=== PATIENT | female | born 1980 | race Caucasian/White ===

== ENCOUNTER → 2020-10-23 11:06 | Outpatient (BNVA) | payer OTHER, SELFPAY | PROVIDERS: PCP Internal Medicine; Visit Provider Orthopaedic Surgery | DX: Z76.89 Persons encountering health services in other specified circumstances (principal) ==

== ENCOUNTER 2021-03-13 13:24 | Outpatient (REF) | payer OTHER, SELFPAY ==
--- NOTE | ~2021-03-13 | FL_ITS ---
EXAMINATION: XR ARTHROGRAM HIP, LEFT CLINICAL INFORMATION: Pain COMPARISON: December 27, 2019 and December 21, 2019 TECHNIQUE: Fluoroscopic guided intra-articular steroid injection of the left hip FINDINGS: Informed consent was obtained from the patient prior to the procedure. During this process, the procedure and potential alternatives were explained, along with the intended outcome and benefits. The risks of the procedure, as well as the risk of not doing the procedure, were discussed. The patient was given the opportunity to ask questions regarding the procedure and appeared competent to make medical decisions. A signed consent form which documents this discussion was placed in the medical record. Using sterile technique and fluoroscopic guidance a 22-gauge spinal needle was directed down onto the left femoral neck. Small amount of contrast was administered demonstrating intra-articular positioning of the needle. Following this a combination of 3 mL of bupivacaine and 80 mg of Depo-Medrol was then instilled into the left hip joint space. Patient tolerated procedure without difficulty. FLUOROSCOPY TIME: 0.6 minutes DOSE AREA PRODUCT: 4.232 Gy-cm2 (barbour-centimeter squared) FL/FL arthrogram hip LT IMPRESSION: Successful left hip intra-articular steroid injection.
== END 2021-03-13 13:25 | disposition home or self-care (01) ==
LOC: HO.XRAY 13:24
PROVIDERS: PCP Internal Medicine; Visit Provider Orthopaedic Surgery
DX: M16.12 Unilateral primary osteoarthritis, left hip (principal); M25.552 Pain in left hip
CPT/HCPCS: 27093; 73525

== ENCOUNTER 2021-08-08 08:29 | Outpatient (REF) | payer OTHER, SELFPAY ==
--- NOTE | ~2021-08-08 | XR_ITS ---
EXAMINATION: XR PELVIS CLINICAL INFORMATION: Pain COMPARISON: 12/21/2019 TECHNIQUE: AP view of the pelvis. FINDINGS: There is a total right hip arthroplasty. The femoral head component articulates appropriately with the acetabular component. No periprosthetic lucency or fracture. The left hip is well aligned. Mild degenerative changes with joint space narrowing, small osteophytes, and sclerosis. The pelvic rim is intact. The sacroiliac joints and pubic symphysis are intact. XR/XR pelvis 1-2V IMPRESSION: Total right hip arthroplasty without evidence of failure. Mild degenerative change of the left hip.
== END 2021-08-08 08:30 | disposition home or self-care (01) ==
LOC: HO.HOSX 08:29
PROVIDERS: Visit Provider Orthopaedic Surgery
DX: S73.199D Other sprain of unspecified hip, subsequent encounter (principal); Q65.89 Other specified congenital deformities of hip
CPT/HCPCS: 72170

== ENCOUNTER 2024-01-12 12:12 | Outpatient (AMB) | payer OTHER, SELFPAY ==
--- NOTE | 2024-01-12 12:36 | MHC.OFFVIS ---
Intake Vital Signs 01/12/24 12:47 Height 5 ft 4.5 in Weight 185 lb BMI 31.3 Intake Visit Reasons: new Prob- RIght thumb trigger finger Intake Note: Zenia 43 yr old right hand dominant female presents today for a new problem visit for her right thumb trigger. States her thumb locks causing pain at her volar aspect of her MCP. She has has this locking in her thumb for about 2 months and has worsen. Currently has stiffness. Denies recent injury, numbness or tingling. Allergies doxycycline [DOXYCYCLINE] Allergy (Unknown, Verified 01/12/24 12:47) PANIC ATTACKS erythromycin base [ERYTHROMYCIN BASE] Allergy (Unknown, Verified 01/12/24 12:47) BECAME AGGRESIVE Erythromycin Allergy (Unknown, Uncoded 01/12/24 12:47) Unknown HPI new Prob- RIght thumb trigger finger HPI Details Zenia is a 43 year old right hand dominant woman who presents with complaints of her right thumb locking. She complains of painful locking and catching of her right thumb. She says this has been present for ~2 months now, and has caused stiffness in her thumb. She denies any numbness, tingling, or injury She has a hx of bilateral carpal tunnel release in ~2013, with good relief. She is on Methadone 10mg daily. She works as a mental health therapist. 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 Review of Systems Const All systems reviewed & are unremarkable except as noted in HPI and below Physical Exam Vital Signs: BMI result Body Mass Index 31.3 Const General: cooperative, healthy appearing and no acute distress Orientation/consciousness: patient oriented x3 HEENT Head: Yes normocephalic and Yes atraumatic Eyes EOM: EOMs intact bilaterally Resp Effort & Inspection: normal respiratory effort and able to speak in complete sentences Cardio Jugular venous distension: no JVD Skin General skin exam: turgor normal Rashes: no rashes Neuro General: patient oriented x3 Extrem Other: Evaluation of Right Upper Extremity: The patient is alert, oriented, and in no acute distress Neuro: Median, Ulnar, Radial nerves motor and sensory intact and sensation is normal to the tips of all digits Vascular: Cap refill brisk ROM: She can make a fist and extend all her digits Visible and palpable locking & catching of the thumb Tender over the a1 hilda of the thumb Skin: No lacerations or abrasions. General: No Ecchymosis. No Erythema or evidence of infection. Psych Appearance: grossly normal Affect: normal affect Attitude: cooperative Office Procedures Fracture Care Details: No fracture, injection Fracture Billing Code: Fracture Billing Code Assessment & Plan Assessment & Plan (1) Trigger thumb, right thumb: Code(s): M65.311 - Trigger thumb, right thumb Plan Assessment & Plan: 1. Right trigger thumb I educated her about this condition I discussed operative and non-operative treatment options The patient would like to proceed with an injection Injection #1: The risks and benefits of a steroid injection including but not limited to risk of damage to blood vessels, nerves, tendons, infection, skin bleaching, failure to improve symptoms, increased pain, and possible need for further injections or other intervention were discussed with the patient and the patient wishes to proceed with the steroid injection. Once consent was obtained, I sterilely prepped the area over the A1 hilda of the flexor tendon sheath of the Right thumb. I then injected the flexor tendon sheath with a combination of 1 mL of dexamethasone (4mg/ml), and 1% lidocaine. The patient tolerated the procedure well with no complications. As she had significant locking of the right thumb, which she is found to be quite painful, I also discussed operative treatments for this condition. We are both concerned that if the injection does not work that it would take a couple of months from now to get in to be seen in it may take another month or 2 to get scheduled. So I decided to go ahead and fill out the paperwork for surgery now so that we have it on hand and that she could be scheduled sooner if she finds that the injection did not work in 4 weeks. The risks and benefits of operative treatment were discussed with the patient and the patient wishes to proceed with surgery. These risks include, but are not limited to risk of damage to blood vessels, nerves, tendons, infection, recurrence, incomplete relief of preoperative symptoms, persistent pain, possible need for further surgery and the risks associated with regional blocks and anesthesia. The plan is to take the patient to the operating room not sooner than 8 weeks from today or March 12 for the following procedures: 1. Right thumb A1 hilda release 2. [ ] All of the preoperative paperwork including the consent was filled out today. All the patient's questions were answered. If the patient continues to have locking and catching 4-6 weeks following this injection, they may call to schedule appointment to discuss alternative treatment options, and to be scheduled for surgery not sooner than March 12 Follow-up prn Scribed for Precious Xiao MD by Anthony Campbell, medical superintendent, on 01/12/24 at 1:10 PM, EST. Coding Level of Care Code Est Pt Level 4 (74317) Diagnoses Trigger thumb, right thumb M65.311 CPT Codes Fracture Care - Fracture Billing Code: Fracture Billing Code ([id number])
[2024-01-12 12:47] VITALS: BMI 31.3
== END 2024-01-12 13:41 | disposition home or self-care (01) ==
PROVIDERS: PCP Internal Medicine; Visit Provider Orthopaedic Surgery
DX: M65.311 Trigger thumb, right thumb (principal)
CPT/HCPCS: 20550; 99214

== ENCOUNTER → 2024-01-12 12:12 | Outpatient (BNVA) | payer OTHER, SELFPAY | PROVIDERS: PCP Internal Medicine; Visit Provider Orthopaedic Surgery | DX: M65.311 Trigger thumb, right thumb (principal) | CPT/HCPCS: 20550; J1100 ==

== ENCOUNTER 2024-03-09 13:02 | Outpatient (AMB) | payer OTHER, SELFPAY ==
--- NOTE | 2024-03-09 13:44 | A.OFFVIS_ITS ---
Intake Visit Reasons: OV-Trigger thumb, right thumb-discuss surgery? Intake Note: Zenia is a 43 yr old right hand dominant female who presents today for a follow up for her right thumb trigger finger, last trigger finger 01/12/24. States her last injection didn't give her relief and she would like to discuss surgery. Allergies doxycycline [DOXYCYCLINE] Allergy (Unknown, Verified 03/09/24 13:48) PANIC ATTACKS erythromycin base [ERYTHROMYCIN BASE] Allergy (Unknown, Verified 03/09/24 13:48) BECAME AGGRESIVE Erythromycin Allergy (Unknown, Uncoded 01/12/24 12:47) Unknown HPI HPI OV-Trigger thumb, right thumb-discuss surgery?: Details: Zenia is a 43 year old right hand dominant woman who returns to discuss her right trigger thumb, S/P injection on 01/12/24 She says the injection did not help and she would like to proceed with surgery She denies any numbness, tingling, or injury She has a hx of bilateral carpal tunnel release in ~2013, with good relief. She is on Methadone 10mg daily. She works as a mental health therapist. 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 Right trigger thumb, S/P injection Date of Injection: 01/12/24 I educated her about this condition I discussed operative and non-operative treatment options The patient would like to proceed with surgery The risks and benefits of operative treatment were discussed with the patient and the patient wishes to proceed with surgery. These risks include, but are not limited to risk of damage to blood vessels, nerves, tendons, infection, recurrence, incomplete relief of preoperative symptoms, persistent pain, possible need for further surgery and the risks associated with regional blocks and anesthesia. The plan is to take the patient to the operating room not sooner than 8 weeks from today or March 12 for the following procedures: 1. Right thumb A1 hilda release, under local All of the preoperative paperwork including the consent was filled out today. All the patient's questions were answered. The patient understands that they will be contacted by our litigation manager soon to schedule this procedure She denies Diabetes, blood thinners, asthma, heart, lung, kidney issues She is on Methadone, 10mg daily Scribed for Precious Xiao MD by Anthony Campbell, medical center representative, on 03/09/24 at 2:05 PM, EST. Coding Level of Care Code Est Pt Level 4 (04804) Diagnoses Trigger thumb, right thumb M65.311
== END 2024-03-09 15:03 | disposition home or self-care (01) ==
PROVIDERS: PCP Internal Medicine; Visit Provider Orthopaedic Surgery
DX: M65.311 Trigger thumb, right thumb (principal)
CPT/HCPCS: 99214

== ENCOUNTER → 2024-03-09 13:02 | Outpatient (BNVA) | payer OTHER, SELFPAY | PROVIDERS: PCP Internal Medicine; Visit Provider Orthopaedic Surgery ==

== ENCOUNTER → 2024-06-02 08:15 | Day surgery (SDC) | payer OTHER, SELFPAY ==
[2024-05-31 09:03] VITALS: BMI 32.6
[2024-06-02 08:54] VITALS: BP 168/94; PULSE 106; RESP 18; TEMP 36.6; O2SAT 97
--- NOTE | 2024-06-02 09:34 | PC.NURSE ---
patient stated that she swabbed positive for covid 19 on thursday and current symptom is scratchy throat. Shelly PETERSEN is covering for infectious disease and she was contacted and stated that patient needs to be 10 days after a positive swab in order to have an elective procedure. Dr. Xiao updated patient and patient to leave and reschedule.
--- OUTSIDE RECORDS SUMMARY | 2024-06-04 23:35 | XMS_ITS | Continuity of Care Document ---
Author Organization [facility] Address [address] [place] [address]- Care Team Providers Care Vegetable Farm Manager Name Role Phone Rosa Salgado MD Primary Care Physician Encounter [facility] Date(s): 10/25/23 - 11/01/23 [facility] [address] [place] [address]- Encounter Diagnosis Trigger finger of thumb(Discharge Diagnosis) - 10/25/23 Attending Physician: Yuli Nicole MD Referring Physician: Rosa Salgado MD Allergies, Adverse Reactions, Alerts Substance Reaction Severity Status LaMICtal Active erythromycin hyper Active Immunizations Given and Recorded Vaccine Date Status Refusal Reason influenza virus vaccine, inactivated 07/12/15 Give n pneumococcal 23-valent vaccine 07/12/15 Given Medications methadone 10 mg/5 mL oral solution 42.0, By Mouth, Daily in AM, 0 Refills, Maintenance, 07/13/15 8:54:10 EDT, Solution Start Date: 07/13/15 Status: Ordered Problem List Condition Confirmation Course Effective Dates Status Health [facility] Informant Hand pain Confirmed Active Diagnosis Diagnosis Type Effective Dates Health Status Cl inical Service Informant Trigger finger of thumb Discharge Diagnosis 10/25/23 Vital Signs Most recent to oldest [Reference Range]: 1 Height 164 cm (10/25/23 8:38 AM) Oxygen Saturation [94-100 %] 98 % (10/25/23 8:38 AM) Pulse Rate [55-90 bpm] 108 bpm *H* (10/25/23 8:38 AM) Blood Pressure [90-138/55-84 mm Hg] 144/ 83mm Hg *H* (10/25/23 8:38 AM) Temperature [96.8-100.4 DegF] 95.3 DegF *L* (10/25/23 8:38 AM) Mode of Delivery (Oxygen) Room air (10/25/23 8:38 AM) Blood pressure sites Arm, right (10/25/23 8:38 AM) Temperature Route Temporal (10/25/23 8:38 AM) Social History Social History Type Response Smoking Status 5-9 cigarettes (betw een 1/4 to 1/2 pack)/day in last 30 days entered on: 10/05/19 Sex Note * Fifi Patel NP: PERFORM, SIGN, VERIFY Event Display: Patient Education/Instruction Authored Date: [id number] [facility] Clinical Summary Name KIRT JOHNSON Age 43 Years 1980 PCP PCP Phone Visit Date 10/25/2023 08:14:00 Additional Instructions: Scheduled Appointments?? Future Appointments ?[facility] [address]??[place],??[place],??[address] ?Phone:??[phone]?Fax:??-- ?Appt. Date:??12/01/2023?11:00 AM ?Scheduled Provider:??[facility]m 3 Follow-Up Instructions ?? Diagnosis Trigger thumb, unspecified thumb Medications: Please continue your medications until treatment is completed or stopped by your provider. Discuss any questions related to medications with your provider. New Medications [facility], [place] [id number], [phone] Ibuprofen (ibuprofen 800 mg oral tablet) 1 tab(s) Oral 3 times a day. not to exceed 3200 mg/day. Refills: 0. Next Dose: Lidocaine Topical (lidocaine 0.5% topical gel) 1 solis Topically 3 times a day. Refills: 0. Next Dose: Medications to Continue with No Changes These medications were not printed or sent to your pharmacy Methadone (methadone 10 mg/5 mL oral solution) 42.0 Oral Daily in the morning. Next Dose: Allergy Info:?? LaMICtal; erythromycin Medications Given This Visit Future Orders ?No future orders Vital Signs Height 164 cm Weight BMI Blood Pressure 144 mm Hg/83 mm Hg Temperature 95.3 DegF Pulse Rate 108 bpm Respiratory Rate 02 Sat Mode of Delivery 98 %/Room air You can now view a summary of your hospital visit from the comfort of your home through a free online portal called [employer]. [employer] is a website that allows you to securely view your medical information including discharge summary, medications and follow-up visits. ??You can alsosend a secure electronic message to your doctor???s office to request appointments, renew medications or just ask a question. You can enroll at [email or web address] or register during your next office visit. Disclaimer:?? The information provided is of a general nature and is intended to be used in conjunction with the recommendations and advice of your health care practitioner. ??Every effort has been made to ensure that the information provided is accurate and complete at the time it is provided to you however, as your needs change, or, as new ??information becomes available, different or additional instructions may be required. If you have questions, please consult with your primary care provider or pharmacist, as appropriate. ??This information is not intended to serve as substitution for assessment and evaluation by a qualified health care provider. If you do not have a primary care provider, you may find a [facility] provider by calling [facility] Setup Link at [phone]. [facility], in keeping with [facility] guidance, no longer requires face masks for staff, patientsor visitors in most situations. Similar to time spent indoors at other locations, there is the chance that you were exposed to respiratory viruses during your time with us (such as flu or COVID-19).? If you develop symptoms concerning for a viral respiratory infection, please seek testing (and treatment if indicated) from your medical provider or home test kit. For information about the plan of care including goals and instructions for your diagnosis, please see the patient education orders section of this document. Patient Education Materials?? The content of this educational material or handout may have been modified, supplemented, or adapted from its original content and format to support your individualized medical care. Patient Care team information Care Team Personnel Name: Shaun PETERSEN, Alejandra Vizcaino Position: S Onco RN Member Role: Primary Care Nurse Care Team Related Persons Name: CHEYENNE JOHNSON Address: [address] [address]
--- OUTSIDE RECORDS SUMMARY | 2024-06-04 23:35 | XMS_ITS | Continuity of Care Document ---
Author Organization [facility] Address [address] [place] [address]- Care Team Providers Care Supervisor Bakery Sanitation Name Role Phone Rosa Salgado MD Primary Care Physician Encounter [facility] Date(s): 10/25/23 - 11/24/23 [facility] [address], [place] [address] Attending Physician: Getachew Mike Admitting Physician: AdmGetachew orona Referring Physician: Admtr, Getachew Allergies, Adverse Reactions, Alerts Substance Reaction Severity Status erythromycin hyper Active LaMICtal Active Immunizations Given and Recorded Vaccine Date Status Refusal Reason influenza virus vaccine, inactivated 07/12/15 Give n pneumococcal 23-valent vaccine 07/12/15 Given Medications methadone 10 mg/5 mL oral solution 42.0, By Mouth, Daily in AM, 0 Refills, Maintenance, 07/13/15 8:54:10 EDT, Solution Start Date: 07/13/15 Status: Ordered Problem List Condition Confirmation Course Effective Dates Status Health [facility] Informant Hand pain Confirmed Active Social History Social History Type Response Smoking Status 5-9 cigarettes (betw een 1/4 to 1/2 pack)/day in last 30 days entered on: 10/05/19 Sex Patient Care team information Care Team Personnel Name: Shaun PETERSEN, Alejandra Vizcaino Position: S Onco RN Member Role: Primary Care Nurse Care Team Related Persons Name: CHEYENNE JOHNSON Address: home [address] [place] [id number]
== END ==
LOC: HO.SSS 08:16
PROVIDERS: PCP Family Medicine; Visit Provider Orthopaedic Surgery
DX: M65.311 Trigger thumb, right thumb (principal); Z53.09 Procedure and treatment not carried out because of other contraindication; U07.1 COVID-19
CPT/HCPCS: J0171